=== PATIENT | female | born 1945 | race African-American/Black ===

== ENCOUNTER 2024-06-26 11:39 | Inpatient (IN) | payer OTHER ==
[~2024-06-26] VITALS: Ht 170.2 cm; Wt 127.0 kg
[2024-06-26 11:51] VITALS: BP 135/94; PULSE 72; RESP 18; TEMP 97.9; O2SAT 99
[2024-06-26 13:11] LABS: ANION GAP 11.9 (8-16); CALCIUM 9.6 mg/dL (8.5-10.1); CHLORIDE 100 mmol/L (98-107); CREATININE 0.9 mg/dL (0.6-1.3); GLUCOSE 100 mg/dL (74-106); POTASSIUM 3.9 mmol/L (3.5-5.1); SODIUM SERUM 137 mmol/L (136-145); UREA NITROGEN, BLOOD 11 mg/dL (7-18)
[2024-06-26 13:13] LABS: APPEARANCE,URINE CLEAR (CLEAR); BILIRUBIN,URINE NEGATIVE (NEGATIVE); BLOOD, URINE NEGATIVE (NEGATIVE); LEUKOCYTE ESTERASE ,URINE 1+ (NEGATIVE); NITRITE, URINE NEGATIVE (NEGATIVE); PH,URINE 6.5 (5.0-9.0); PROTEIN,URINE NEGATIVE (NEGATIVE); UGLUCOSE NEGATIVE (NEGATIVE); UROBILINOGEN,URINE 0.2 EU/dL (0.2 - 1)
[2024-06-26 13:14] LABS: BASOPHILS % (AUTO) 0.6 % (0.0-2.0); EOSINOPHILS # (AUTO) 0.1 K/uL (0-0.4); EOSINOPHILS % (AUTO) 1.5 % (0.0-4.0); HEMATOCRIT 40.3 % (36-48); HEMOGLOBIN 12.9 g/dL (12.0-16.0); LYMPHOCYTES # (AUTO) 4.6 K/uL (2.5-16.5); LYMPHOCYTES % (AUTO) 64.2 % (20.5-51.1); MEAN CORPUSCULAR HEMOGLOBIN 30 pg (27-31); MEAN CORPUSCULAR HGB CONC 32 g/dL (33-37); MEAN CORPUSCULAR VOLUME 92.9 fL (80-94); MONOCYTES # (AUTO) 0.5 K/uL (0.8-1.0); MONOCYTES % (AUTO) 7.4 % (1.7-9.3); NEUTROPHILS # (AUTO) 1.9 K/uL (1.8-7.7); NEUTROPHILS % (AUTO) 26.3 % (42.2-75.2); PLATELET COUNT (AUTO) 228 K/uL (140-450); RED BLOOD CELL COUNT(AUTO) 4.34 MIL/uL (4.20-5.40); RED CELL DISTRIBUTION WIDTH 15.9 % (11.6-13.7); WHITE BLOOD COUNT (AUTO) 7.1 K/uL (4.8-10.8)
[2024-06-26 13:15] LABS: COLOR,URINE AMBER (YELLOW)
[2024-06-26 13:18] LABS: RBC,URINE 0-5 /HPF (0-5)
[2024-06-26] MEDS ORDERED: cefTRIAXone 1,000 MG VIAL ONE (13:18)
[2024-06-26 13:19] LABS: BACTERIA,URINE FEW /HPF (None Seen); SQUAMOUS EPITHELIAL CELL,UR 4-10 (MOD) /LPF (0-3 (FEW))
[2024-06-26 13:20] LABS: LACTIC ACID 1.1 mmol/L (0.4-2.0)
[2024-06-26] MEDS: cefTRIAXone 1,000 MG in DEXT 5% MINI-BAG PLUS 50 ML IV ONE (13:24)
[2024-06-26 16:00] VITALS: PULSE 85; RESP 18; O2SAT 96
[2024-06-26] MEDS ORDERED: MAGNESIUM OXIDE 400 MG TAB PO PRN (19:25)
[2024-06-26] MEDS ORDERED: MORPHINE SULFATE 4 MG/ML SYR IVP PRN (19:25)
[2024-06-26] MEDS ORDERED: ONDANSETRON 4 MG/2 ML VIAL IVP PRN (19:25)
[2024-06-26] MEDS ORDERED: ACETAMINOPHEN 325 MG TAB PO PRN (19:25)
[2024-06-26] MEDS ORDERED: HYDROcodone/APAP 5/325 MG 1 TAB TAB PO PRN (19:25)
[2024-06-26] MEDS ORDERED: POTASSIUM CHLORIDE 10 MEQ TABER PO PRN (19:25)
[2024-06-26] MEDS ORDERED: MAG SULF 2000 MG/WATER PREMIX 50 ML IV PRN (19:25)
[2024-06-26] MEDS ORDERED: KCL 20 MEQ IN 100 mL PREMIX 200 ML IV PRN (19:25)
[2024-06-26 20:00] VITALS: BP 125/71; PULSE 90; RESP 18; TEMP 96.5; O2SAT 98
[2024-06-26] MEDS: NACL 0.9% 1,000 ML IV SCH (21:17)
[2024-06-27 04:00] VITALS: BP 125/73; PULSE 80; RESP 19; TEMP 97; O2SAT 97
[2024-06-27 05:54] LABS: BASOPHILS % (AUTO) 0.5 % (0.0-2.0); EOSINOPHILS # (AUTO) 0.1 K/uL (0-0.4); EOSINOPHILS % (AUTO) 1.1 % (0.0-4.0); HEMATOCRIT 41.1 % (36-48); HEMOGLOBIN 13.2 g/dL (12.0-16.0); LYMPHOCYTES # (AUTO) 3.1 K/uL (2.5-16.5); LYMPHOCYTES % (AUTO) 47.3 % (20.5-51.1); MEAN CORPUSCULAR HEMOGLOBIN 29 pg (27-31); MEAN CORPUSCULAR HGB CONC 32 g/dL (33-37); MEAN CORPUSCULAR VOLUME 91.6 fL (80-94); MONOCYTES # (AUTO) 0.7 K/uL (0.8-1.0); MONOCYTES % (AUTO) 10.9 % (1.7-9.3); NEUTROPHILS # (AUTO) 2.6 K/uL (1.8-7.7); NEUTROPHILS % (AUTO) 40.2 % (42.2-75.2); PLATELET COUNT (AUTO) 221 K/uL (140-450); RED BLOOD CELL COUNT(AUTO) 4.49 MIL/uL (4.20-5.40); RED CELL DISTRIBUTION WIDTH 15.7 % (11.6-13.7); WHITE BLOOD COUNT (AUTO) 6.4 K/uL (4.8-10.8)
[2024-06-27 06:00] LABS: ALANINE AMINOTRANSFERASE 20 U/L (12-78); ALKALINE PHOSPHATASE 80 U/L (50-136); ANION GAP 8.7 (8-16); ASPARTATE AMINOTRANSFERASE 23 U/L (15-37); CALCIUM 9.4 mg/dL (8.5-10.1); CARBON DIOXIDE 31.8 mmol/L (21-32); CHLORIDE 102 mmol/L (98-107); CREATININE 0.9 mg/dL (0.6-1.3); GLUCOSE 106 mg/dL (74-106); MAGNESIUM 2.2 mg/dL (1.8-2.4); POTASSIUM 4.5 mmol/L (3.5-5.1); SODIUM SERUM 138 mmol/L (136-145); TOTAL BILIRUBIN 0.5 mg/dL (0.0-1.0); TOTAL PROTEIN, SERUM 7.7 g/dL (6.4-8.2); UREA NITROGEN, BLOOD 10 mg/dL (7-18)
[2024-06-27 08:00] VITALS: BP 124/54; PULSE 81; PULSE 85; RESP 18; RESP 20; TEMP 96.5; O2SAT 96; O2SAT 97
[2024-06-27] MEDS: DOCUSATE SODIUM 100 MG GELCAP PO SCH (08:09)
[2024-06-27 16:00] VITALS: BP 120/84; PULSE 92; RESP 20; TEMP 97.5; O2SAT 100
[2024-06-27 20:00] VITALS: PULSE 82; RESP 18; TEMP 98.5; O2SAT 95
[2024-06-28] VITALS: BP 118/66; PULSE 78; RESP 18; TEMP 98.3; O2SAT 97
[2024-06-28 05:20] LABS: BASOPHILS # (AUTO) 0.1 K/uL (0.00-0.22); BASOPHILS % (AUTO) 0.9 % (0.0-2.0); EOSINOPHILS # (AUTO) 0.1 K/uL (0-0.4); EOSINOPHILS % (AUTO) 1.5 % (0.0-4.0); HEMATOCRIT 41.5 % (36-48); HEMOGLOBIN 13.5 g/dL (12.0-16.0); LYMPHOCYTES # (AUTO) 3.5 K/uL (2.5-16.5); MEAN CORPUSCULAR HEMOGLOBIN 30 pg (27-31); MEAN CORPUSCULAR HGB CONC 32 g/dL (33-37); MEAN CORPUSCULAR VOLUME 91.6 fL (80-94); MONOCYTES # (AUTO) 0.6 K/uL (0.8-1.0); MONOCYTES % (AUTO) 9.9 % (1.7-9.3); NEUTROPHILS # (AUTO) 2.1 K/uL (1.8-7.7); NEUTROPHILS % (AUTO) 32.7 % (42.2-75.2); PLATELET COUNT (AUTO) 218 K/uL (140-450); RED BLOOD CELL COUNT(AUTO) 4.54 MIL/uL (4.20-5.40); RED CELL DISTRIBUTION WIDTH 15.6 % (11.6-13.7); WHITE BLOOD COUNT (AUTO) 6.5 K/uL (4.8-10.8)
[2024-06-28 05:37] LABS: ALANINE AMINOTRANSFERASE 24 U/L (12-78); ALBUMIN 2.8 g/dL (3.4-5.0); ALKALINE PHOSPHATASE 73 U/L (50-136); ANION GAP 9.6 (8-16); ASPARTATE AMINOTRANSFERASE 27 U/L (15-37); CARBON DIOXIDE 28.5 mmol/L (21-32); CHLORIDE 103 mmol/L (98-107); CREATININE 0.8 mg/dL (0.6-1.3); GLUCOSE 112 mg/dL (74-106); POTASSIUM 4.1 mmol/L (3.5-5.1); SODIUM SERUM 137 mmol/L (136-145); TOTAL BILIRUBIN 0.4 mg/dL (0.0-1.0); TOTAL PROTEIN, SERUM 7.6 g/dL (6.4-8.2); UREA NITROGEN, BLOOD 9 mg/dL (7-18)
[2024-06-28 08:00] VITALS: BP 123/67; PULSE 85; RESP 18; TEMP 97.1; O2SAT 95; O2SAT 96
[2024-06-28] MEDS ORDERED: APIX5TAB PO (09:48)
[2024-06-28] MEDS ORDERED: KEP500L PO (09:48)
[2024-06-28] MEDS ORDERED: sodium chloride (09:48)
[2024-06-28] MEDS ORDERED: AMLO5TAB PO (09:48)
[2024-06-28] MEDS ORDERED: LISI40TA12 PO (09:48)
[2024-06-28] MEDS ORDERED: SODI100076 PO (11:35)
[2024-06-28 16:00] VITALS: BP 134/79; PULSE 91; RESP 18; TEMP 97.4; O2SAT 95
[2024-06-28 20:00] VITALS: PULSE 90; RESP 18; TEMP 98.4; O2SAT 93
[2024-06-28] MEDS: levETIRAcetam 100 MG/ML ORASYR GT SCH (20:52)
[2024-06-28] MEDS: APIXABAN 2.5 MG TAB PO SCH (20:53)
[2024-06-28] MEDS ORDERED: levETIRAcetam 100 MG/ML ORASYR PO SCH (21:00)
[2024-06-29] VITALS: BP 113/71; PULSE 101; RESP 18; TEMP 98.4; O2SAT 93
[2024-06-29 05:22] LABS: BASOPHILS # (AUTO) 0.1 K/uL (0.00-0.22); BASOPHILS % (AUTO) 0.8 % (0.0-2.0); EOSINOPHILS # (AUTO) 0.1 K/uL (0-0.4); EOSINOPHILS % (AUTO) 1.6 % (0.0-4.0); HEMATOCRIT 38.6 % (36-48); HEMOGLOBIN 12.4 g/dL (12.0-16.0); LYMPHOCYTES # (AUTO) 3.6 K/uL (2.5-16.5); LYMPHOCYTES % (AUTO) 52.9 % (20.5-51.1); MEAN CORPUSCULAR HEMOGLOBIN 29 pg (27-31); MEAN CORPUSCULAR HGB CONC 32 g/dL (33-37); MONOCYTES # (AUTO) 0.7 K/uL (0.8-1.0); MONOCYTES % (AUTO) 9.9 % (1.7-9.3); NEUTROPHILS # (AUTO) 2.4 K/uL (1.8-7.7); NEUTROPHILS % (AUTO) 34.8 % (42.2-75.2); PLATELET COUNT (AUTO) 225 K/uL (140-450); RED BLOOD CELL COUNT(AUTO) 4.24 MIL/uL (4.20-5.40); RED CELL DISTRIBUTION WIDTH 15.7 % (11.6-13.7); WHITE BLOOD COUNT (AUTO) 6.8 K/uL (4.8-10.8)
[2024-06-29 05:54] LABS: ALANINE AMINOTRANSFERASE 26 U/L (12-78); ALBUMIN 2.8 g/dL (3.4-5.0); ALKALINE PHOSPHATASE 71 U/L (50-136); ANION GAP 11.4 (8-16); ASPARTATE AMINOTRANSFERASE 30 U/L (15-37); CALCIUM 9.1 mg/dL (8.5-10.1); CARBON DIOXIDE 26.3 mmol/L (21-32); CHLORIDE 104 mmol/L (98-107); CREATININE 0.9 mg/dL (0.6-1.3); GLUCOSE 136 mg/dL (74-106); MAGNESIUM 1.9 mg/dL (1.8-2.4); POTASSIUM 3.7 mmol/L (3.5-5.1); SODIUM SERUM 138 mmol/L (136-145); TOTAL BILIRUBIN 0.3 mg/dL (0.0-1.0); TOTAL PROTEIN, SERUM 7.3 g/dL (6.4-8.2); UREA NITROGEN, BLOOD 7 mg/dL (7-18)
[2024-06-29 08:00] VITALS: BP 143/74; PULSE 92; RESP 18; RESP 20; TEMP 97.1; TEMP 97.4; O2SAT 94
[2024-06-29] MEDS: lisinopriL 20 MG TAB PO SCH (08:18)
[2024-06-29] MEDS: SODIUM CHLORIDE 1 GM TAB PO SCH (08:18)
[2024-06-29] MEDS: amLODIPine 5 MG TAB PO SCH (08:19)
[2024-06-29] MEDS ORDERED: ROC1PM IV (15:31)
[2024-06-29 16:00] VITALS: BP 145/75; PULSE 91; RESP 20; TEMP 97.5; O2SAT 96
[2024-06-29 20:00] VITALS: PULSE 93; RESP 20; TEMP 97.3; O2SAT 94
[2024-06-30] VITALS: BP 127/73; PULSE 93; RESP 18; TEMP 97; O2SAT 94
[2024-06-30 05:16] LABS: BASOPHILS % (AUTO) 0.5 % (0.0-2.0); EOSINOPHILS # (AUTO) 0.1 K/uL (0-0.4); EOSINOPHILS % (AUTO) 0.6 % (0.0-4.0); HEMATOCRIT 37.9 % (36-48); HEMOGLOBIN 12.3 g/dL (12.0-16.0); LYMPHOCYTES # (AUTO) 3.3 K/uL (2.5-16.5); LYMPHOCYTES % (AUTO) 40.9 % (20.5-51.1); MEAN CORPUSCULAR HEMOGLOBIN 30 pg (27-31); MEAN CORPUSCULAR HGB CONC 32 g/dL (33-37); MEAN CORPUSCULAR VOLUME 91.1 fL (80-94); MONOCYTES # (AUTO) 0.8 K/uL (0.8-1.0); MONOCYTES % (AUTO) 9.3 % (1.7-9.3); NEUTROPHILS % (AUTO) 48.7 % (42.2-75.2); PLATELET COUNT (AUTO) 239 K/uL (140-450); RED BLOOD CELL COUNT(AUTO) 4.16 MIL/uL (4.20-5.40); RED CELL DISTRIBUTION WIDTH 15.8 % (11.6-13.7); WHITE BLOOD COUNT (AUTO) 8.2 K/uL (4.8-10.8)
[2024-06-30 06:23] LABS: ALANINE AMINOTRANSFERASE 30 U/L (12-78); ALBUMIN 2.7 g/dL (3.4-5.0); ANION GAP 10.8 (8-16); ASPARTATE AMINOTRANSFERASE 28 U/L (15-37); CALCIUM 8.9 mg/dL (8.5-10.1); CARBON DIOXIDE 25.9 mmol/L (21-32); CHLORIDE 103 mmol/L (98-107); CREATININE 0.8 mg/dL (0.6-1.3); GLUCOSE 152 mg/dL (74-106); MAGNESIUM 1.9 mg/dL (1.8-2.4); POTASSIUM 3.7 mmol/L (3.5-5.1); SODIUM SERUM 136 mmol/L (136-145); UREA NITROGEN, BLOOD 6 mg/dL (7-18)
[2024-06-30 08:00] VITALS: BP 137/82; PULSE 84; RESP 19; TEMP 96.6; O2SAT 94
[2024-06-30 10:17] LABS: ALKALINE PHOSPHATASE 67 U/L (50-136); TOTAL BILIRUBIN 0.3 mg/dL (0.0-1.0); TOTAL PROTEIN, SERUM 7.4 g/dL (6.4-8.2)
[2024-06-30] MEDS: DOCUSATE 100 MG/10 ML UDC GT SCH (10:58)
[2024-06-30 16:00] VITALS: BP 135/81; PULSE 103; RESP 19; TEMP 97.3; O2SAT 95
[2024-06-30] MEDS: FUROSEMIDE 40 MG/4 ML VIAL IVP SCH (16:21)
[2024-06-30] MEDS ORDERED: FURO-572 PO (17:00)
[2024-06-30] MEDS ORDERED: LISI40TA12 PO (17:01)
[2024-06-30] MEDS ORDERED: FUROSEMIDE 40 MG/4 ML VIAL IVP SCH (20:30)
[2024-07-01] MEDS ORDERED: FUROSEMIDE 40 MG/4 ML VIAL IVP SCH (09:00)
== END 2024-06-30 16:40 | DRG 70 ==
LOC: MED 11:39 → MTU 15:28
PROVIDERS: ADMIT Hospitalist; ATTEND Hospitalist
DX: G93.41 Metabolic encephalopathy (principal); R65.11 Systemic inflammatory response syndrome (SIRS) of non-infectious origin with acute organ dysfunction; N39.0 Urinary tract infection, site not specified; E44.1 Mild protein-calorie malnutrition; Z68.43 Body mass index [BMI] 50.0-59.9, adult; G40.909 Epilepsy, unspecified, not intractable, without status epilepticus; Z86.73 Personal history of transient ischemic attack (TIA), and cerebral infarction without residual deficits; B96.89 Other specified bacterial agents as the cause of diseases classified elsewhere
CPT/HCPCS: 36415; 70450; 71045; 80048; 80053; 81001; 83605; 83735; 83880; 84484; 85025; 87040; 87081; 87086; 87186; 92526; 93005; 96365; 97110; 97112; 97530; 99285; J0696; J1644; J1940; J7060